=== PATIENT | male | born 1955 | race Asian ===

== ENCOUNTER 2024-06-24 10:44 | Day surgery (SDC) | payer OTHER ==
[2024-06-24 10:52] VITALS: BMI 24.2
[2024-06-24] MEDS ORDERED: ONDANSETRON 4 MG/2 ML VIAL ONE (12:04)
[2024-06-24] MEDS: ONDANSETRON 4 MG/2 ML VIAL IVPUSH ONE (12:11)
[2024-06-24 12:35] LABS: BASO % 0.3 % (0-2.0); EOS % 0.2 % (0-4.5); HEMOGLOBIN 14.5 GM/dL (11.7-16.9); LYMPH % 8.1 % (8-40); MCH 31.3 pg (25.7-33.7); MCHC 33.7 g/dl (32.0-35.9); MEAN CELL VOLUME 92.8 fl (80-96); MEAN PLT VOLUME 8.9 fl (7.5-11.1); NEUT % 82.4 % (42.8-82.8); PLATELET COUNT 300 10^3/uL (134-434); RBC 4.63 M/mm3 (4.00-5.60); RDW 14.5 % (11.9-15.9); WHITE BLOOD COUNT 16.4 K/mm3 (4.0-10.0)
[2024-06-24 12:37] LABS: EPI CELLS 7 /uL (0-25.1); HYALINE CASTS 0 /uL (0-3.1); PH,URINE 7.5 (5.0-8.0); URINE APPEARANCE CLEAR; URINE BACTERIA 2 /uL (0-1359); URINE BILIRUBIN NEGATIVE (NEGATIVE); URINE COLOR YELLOW; URINE GLUCOSE (UA) NEGATIVE (NEGATIVE); URINE KETONE NEGATIVE (NEGATIVE); URINE LEUK ESTERASE NEGATIVE (NEGATIVE); URINE NITRITE NEGATIVE (NEGATIVE); URINE PROTEIN TRACE (NEGATIVE); URINE RBC 102 /uL (0-23.9); URINE UROBILINOGEN 0.2 mg/dL (0.2-1.0); URINE WBC 13 /uL (0-25.8)
[2024-06-24] MEDS: SODIUM CHLORIDE 1,000 ML IV STA (12:44)
[2024-06-24 12:52] LABS: POTASSIUM 3.8 mmol/L (3.5-5.1)
[2024-06-24 12:54] LABS: CALCIUM 9.6 mg/dL (8.5-10.1)
[2024-06-24 12:55] LABS: ALBUMIN 3.6 g/dl (3.4-5.0); BLOOD UREA NITROGEN 16.9 mg/dL (7-18)
[2024-06-24 12:58] LABS: CREATININE 1.1 mg/dL (0.55-1.3)
[2024-06-24 12:59] LABS: BILIRUBIN,TOTAL 0.7 mg/dL (0.2-1); TOT PROT 7.4 g/dl (6.4-8.2)
[2024-06-24 13:01] LABS: PROTHROMBIN TIME (PATIENT) 11.3 SEC (9.7-13.0)
[2024-06-24 13:03] LABS: ACTIVATED PTT 31.6 SECONDS (25.2-36.5)
[2024-06-24] MEDS ORDERED: PIPERACILLIN/TAZOB 3.375 GM 3.375 GM/50 ML BAG IVPB ONE (15:59)
[2024-06-24] MEDS ORDERED: ACETAMINOPHEN INJECTION 100 ML ONE (16:37)
[2024-06-24] MEDS: PIPERACILLIN/TAZOB 3.375 GM 3.375 GM in DEXTROSE 5%-WATER - 50 ML IVPB ONE (16:49)
[2024-06-24] MEDS ORDERED: KETOROLAC TROMETHAMINE 15 MG/ML VIAL IVPUSH PRN (16:51)
[2024-06-24] MEDS ORDERED: ACETAMINOPHEN 1000 MG/100 ML BAG IVPB PRN (16:51)
[2024-06-24] MEDS: ACETAMINOPHEN 1000 MG/100 ML BAG IVPB ONE (16:56)
[2024-06-24 18:22] LABS: HIV INTERPRETATION NEGATIVE (NEGATIVE)
[2024-06-25] MEDS: LACTATED RINGERS SOLUTION 1,000 ML/1,000 ML INFUS.BAG IV SCH ×2 (01:46→17:08)
[2024-06-25] MEDS: CEFTRIAXONE 1 G/50 ML PREMIX 50 ML IVPB SCH (09:01)
[2024-06-25] MEDS ORDERED: BUPIVACAINE HCL/PF 0.25% (2.5MG/ML) 10 ML VIAL ONE (10:53)
[2024-06-25] MEDS ORDERED: PROPOFOL 20 ML ONE (11:28)
[2024-06-25] MEDS ORDERED: MIDAZOLAM HCL 2 MG/2 ML SINGLE DOSE VIAL ONE (11:32)
[2024-06-25] MEDS ORDERED: NEOSTIGMINE METHYLSULFATE 0.5 MG/1 ML - 10 ML MDV ONE (13:01)
[2024-06-25] MEDS: BUPIVACAINE HCL/PF 0.25% (2.5MG/ML) 10 ML VIAL IJ ONE ×2 (13:02)
[2024-06-25] MEDS ORDERED: KETOROLAC TROMETHAMINE 30 MG/1 ML VIAL ONE (13:19)
[2024-06-25] MEDS ORDERED: ONDANSETRON 4 MG/2 ML VIAL ONE (13:19)
[2024-06-25] MEDS ORDERED: DEXAMETHASONE SOD PHOSPHATE 4 MG/1 ML VIAL ONE (13:19)
[2024-06-25] MEDS ORDERED: GLYCOPYRROLATE 0.2 MG/1 ML VIAL ONE (13:19)
[2024-06-25] MEDS ORDERED: ONDANSETRON 4 MG/2 ML VIAL IVPUSH PRN (14:25)
[2024-06-25] MEDS ORDERED: oxyCODONE HCL 5 MG TABLET PO PRN (14:29)
[2024-06-25] MEDS: ACETAMINOPHEN 1000 MG/100 ML BAG IVPB ONE (14:36)
[2024-06-25] MEDS: LACTATED RINGERS SOLUTION 1,000 ML IV SCH (14:36)
[2024-06-25] MEDS: ACETAMINOPHEN 325 MG TABLET (FP) PO SCH (18:37)
[2024-06-25] MEDS: oxyCODONE HCL 5 MG TABLET PO PRN (19:29)
[2024-06-25] MEDS: CEFOXITIN SODIUM 1 GM in DEXTROSE 5%-WATER 100 ML IVPB SCH (19:31)
[2024-06-26 07:01] VITALS: RESP 18
[2024-06-26 09:05] LABS: BASO % 0.2 % (0-2.0); HEMATOCRIT 36.9 % (35.4-49); HEMOGLOBIN 12.8 GM/dL (11.7-16.9); LYMPH % 9.1 % (8-40); MCH 31.5 pg (25.7-33.7); MCHC 34.8 g/dl (32.0-35.9); MEAN CELL VOLUME 90.6 fl (80-96); MEAN PLT VOLUME 7.8 fl (7.5-11.1); MONO % 7.5 % (3.8-10.2); NEUT % 83.2 % (42.8-82.8); PLATELET COUNT 325 10^3/uL (134-434); RBC 4.07 M/mm3 (4.00-5.60); RDW 14.5 % (11.9-15.9); WHITE BLOOD COUNT 13.7 K/mm3 (4.0-10.0)
[2024-06-26 09:23] LABS: POTASSIUM 3.2 mmol/L (3.5-5.1)
[2024-06-26 09:25] LABS: CALCIUM 8.9 mg/dL (8.5-10.1)
[2024-06-26 09:30] LABS: BILIRUBIN,TOTAL 0.5 mg/dL (0.2-1); TOT PROT 6.5 g/dl (6.4-8.2)
[2024-06-26] MEDS: FOLIC ACID 1 MG TABLET (FP) PO SCH (09:59)
[2024-06-26 18:19] VITALS: BP 124/70; PULSE 83; TEMP 98.6
[2024-06-26] MEDS ORDERED: ATORVASTATIN CA 10 MG TABLET (FP) PO SCH (22:00)
[2024-06-26] MEDS ORDERED: TAMSULOSIN HCL 0.4 MG CAP PO SCH (22:00)
== END 2024-06-26 18:52 | disposition home or self-care (01) ==
LOC: JER 10:44 → UNDOADMIN 16:00 → JERBED 16:00 → J5S 17:28 → JASUSAT 06-25 08:12 → J5S 06-25 08:35 → JASUSAT 06-26 18:52
PROC: 0FT44ZZ Resection of Gallbladder, Percutaneous Endoscopic Approach (ICD-10-PCS; principal; 2024-06-25 15:45)
DX: K81.0 Acute cholecystitis (principal)
CPT/HCPCS: 36415; 76705-TC; 80053; 81003; 83690; 84484; 85025; 85610; 85730; 86803; 86850; 86900; 86901; 87389; 88304-TC; 93005; 93010; 94010; 94760; 99285-25; J0131